=== PATIENT | male | born 1985 | race African-American/Black ===

== ENCOUNTER 2016-11-14 21:12 | Emergency (ER) | payer OTHER ==
[2016-11-14] MEDS ORDERED: PHENOL THROAT SPRAY 177 ML MM STA (21:43)
[2016-11-14] MEDS ORDERED: PHENOL THROAT SPRAY 177 ML MM ONE (21:50)
== END 2016-11-14 21:55 | disposition home or self-care (01) ==
DX: J02.8 Acute pharyngitis due to other specified organisms (principal); B97.89 Other viral agents as the cause of diseases classified elsewhere
CPT/HCPCS: 87070; 87077; 87181; 87430; 99283; A9270

== ENCOUNTER 2019-05-30 08:54 | Outpatient (CLI) | payer OTHER | END 2019-05-30 08:55 | disposition critical access hospital (66) | LOC: EMS 08:54 | PROVIDERS: ATTEND Surgery | DX: R55 Syncope and collapse (principal) | CPT/HCPCS: A0425; A0427 ==

== ENCOUNTER 2019-05-30 09:19 | Emergency (ER) | payer OTHER ==
[2019-05-30 09:25] VITALS: BP 120/79
--- NOTE | 2019-05-30 09:36 | ED Physician Documentation ---
History of Present Illness - Stated complaint Stated Complaint: SYNCOPE - Chief complaint Chief Complaint: Neuro - History obtained from History obtained from: Patient - History of Present Illness Timing: Prior to arrival - Additonal information Additional information: Patient is a previously healthy 33-year-old male presenting with syncopal episode that lasted several seconds and occurred just prior to arrival. Patient reports that he was in an argument with his and started to feel lightheaded. Patient believes he was experiencing extreme stress and anxiety. Patient was able to sit down and therefore did not fall or injure himself. Patient believes he blacked out for several seconds. Patient denies any other prodromal symptoms or any complaints at this time including headache, vision loss, chest pain, difficulty breathing, fever, cough, abdominal pain, urinary changes, stool changes or otherwise. No other improving or worsening factors n oted. Review of Systems Constitutional: denies: Fever Eyes: denies: Loss of vision Cardiac: denies: Chest pain / pressure Respiratory: denies: Dyspnea, Cough GI: denies: Abdominal Pain, Nausea, Vomiting, Diarrhea : denies: Dysuria Neurologic: reports: LOC. denies: Headache, Head injury PD PAST MEDICAL HISTORY - Past Medical History Past Medical History: No - Past Surgical History Past Surgical History: No - Present Medications Home Medications: Ambulatory Orders Medication Instructions Recorded Confirmed No Known Home Medications 11/14/16 11/14/16 - Allergies Allergies/Adverse Reactions: Allergies Allergy/AdvReac Type Severity Reaction Status Date / Time No Known Drug Allergies Allergy Verified 11/14/16 21:17 - Social History Does the pt smoke?: No Smoking Status: Never smoker Does the pt drink ETOH?: No Does the pt have substance abuse?: No - Immunizations Immunizations are current?: Yes - POLST Patient has POLST: No PD ED PE NORMAL - Vitals Vital signs reviewed: Yes - General General: Alert and oriented X 3, No acute distress, Well developed/nourished - HEENT HEENT: Atraumatic, PERRL, EOMI, Moist mucous membranes, Pharynx benign - Neck Neck: Supple, no meningeal sign - Cardiac Cardiac: RRR, No murmur - Respiratory Respiratory: No respiratory distress, Clear bilaterally - Abdomen Abdomen: Soft, Non tender, Non distended - Derm Derm: Normal color, Warm and dry, No rash - Extremities Extremities: No deformity, No tenderness to palpate - Neuro Neuro: Alert and oriented X 3, No motor deficit, No sensory deficit - Psych Psych: Normal mood, Normal affect Results - Vitals Vitals: Vital Signs - 24 hr 05/30/19 09:21 Temperature 36.3 C L Heart Rate 75 Respiratory 18 Rate Blood Pressure 120/79 O2 Saturation 98 Oxygen O2 Source Room air - EKG (time done) 0952 Rate: Rate (enter#) (77) Rhythm: NSR Computer interpretation: Disagree with computer (Computer read as atrial fibrillation, however, able to visualize P waves) - Labs Labs: Laboratory Tests 05/30/19 05/30/19 05/30/19 09:55 09:58 09:58 WBC 9.6 RBC 5.37 Hgb 15.0 Hct 47.9 MCV 89.2 MCH 27.9 MCHC 31.3 L RDW 13.3 Plt Count 190 MPV 11.1 Neut # (Auto) 6.6 Lymph # (Auto) 2.2 [place] # (Auto) 0.6 Eos # (Auto) 0.2 Baso # (Auto) 0.0 Absolute Nucleated RBC 0.00 Nucleated RBC % 0.0 Sodium 141 Potassium 4.0 Chloride 102 Carbon Dioxide 24 Anion Gap 15.0 H BUN 18 Creatinine 1.2 Estimated GFR (MDRD) 84 L Glucose 108 H Calcium 9.2 Total Bilirubin 0.6 AST 20 ALT 28 Alkaline Phosphatase 62 Troponin I High Sens 2.8 Total Protein 7.8 Albumin 4.3 Globulin 3.5 Albumin/Globulin Ratio 1.2 Lipase 28 PD MEDICAL DECISION MAKING - ED course Complexity details: reviewed results, re-evaluated patient, considered differential, d/w patient ED course: Patient presenting after likely vasovagal syncopal episode in which he did not injure himself or suffer any trauma. Patient is asymptomatic at this time. Physical exam is extremely benign. Do not find evidence of trauma, systemic illness, or neurological deficit. Screening lab work including cardiac enzymes and EKG returned unremarkable. Do not feel patient requires further invasive testing or imaging at this time. Feel that he is safe to discharge home. Discussed results and recommendations including supportive cares, return precautions, and appropriate follow-up. Patient voiced understanding and is co mfortable with discharge plan. Departure - Departure Disposition: 01 Home, Self Care Clinical Impression: Syncope Qualifiers: Syncope type: vasovagal syncope Qualified Code(s): R55 - Syncope and collapse Condition: Good Instructions: ED Syncope Vasovagal Follow-Up: your,doctor [Other] - Within 3 Days Comments: Recommend hydration, healthy diet, rest, and follow-up with your primary care physician in next 2 to 3 days. Return to ED sooner if experience worsening symptoms or have other concerns.
[2019-05-30 10:07] LABS: BASOPHILS % (AUTO) 0.2 %; EOSINOPHILS # (AUTO) 0.2 10^3/uL (0.0-0.7); EOSINOPHILS % (AUTO) 2.1 %; LYMPHOCYTES # (AUTO) 2.2 10^3/uL (1.5-3.5); LYMPHOCYTES % (AUTO) 22.5 %; MEAN CORPUSCULAR HEMOGLOBIN 27.9 pg (27.0-31.0); MEAN CORPUSCULAR HGB CONC 31.3 g/dL (32.0-36.0); MEAN CORPUSCULAR VOLUME 89.2 fL (80.0-94.0); MEAN PLATELET VOLUME 11.1 fL (7.4-11.4); MONOCYTES # (AUTO) 0.6 10^3/uL (0.0-1.0); MONOCYTES % (AUTO) 6.3 %; NEUTROPHILS # (AUTO) 6.6 10^3/uL (1.5-6.6); NEUTROPHILS % (AUTO) 68.7 %; PLT - PLATELET COUNT 190 10^3/uL (130-450); RED BLOOD COUNT 5.37 10^6/uL (4.70-6.10); RED CELL DISTRIBUTION WIDTH 13.3 % (12.0-15.0); WHITE BLOOD COUNT 9.6 x10^3/uL (4.8-10.8)
[2019-05-30 10:21] LABS: ALBUMIN 4.3 g/dL (3.2-5.5); ALBUMIN/GLOBULIN RATIO 1.2 (1.0-2.2); BILIRUBIN,TOTAL 0.6 mg/dL (0.2-1.0); CALCIUM 9.2 mg/dL (8.5-10.3); CREATININE 1.2 mg/dL (0.6-1.2); TOTAL PROTEIN 7.8 g/dL (6.7-8.2)
== END 2019-05-30 11:20 | disposition home or self-care (01) ==
LOC: EDUNIT# → ED 09:19
DX: R55 Syncope and collapse (principal)
CPT/HCPCS: 36415; 80053; 83690; 84484; 85025; 93005; 99283

== ENCOUNTER 2019-09-28 10:08 | Emergency (ER) | payer OTHER ==
--- NOTE | 2019-09-28 11:41 | ED Physician Documentation ---
PD HPI NVD - Stated complaint Stated Complaint: DIARRHEA - Chief complaint Chief Complaint: Abd Pain - History obtained from History obtained from: Patient - History of Present Illness Timing - onset: How many days ago (7-8) Timing - duration: Days (7-8) Timing - details: Abrupt onset, Still present Associated symptoms: Abdominal pain (intermittent cramping), Loss of appetite. No: Fever, Weight loss Contributing factors: Sick contact (he and his daughter both with diarrhea and some vomiting for a day and she improved, but patient has continued with diarrhea 3-4 times daily for the week. Onset after eating some leftover egg dish, but others ate some too without illness.) Review of Systems Constitutional: reports: Myalgias. denies: Fever, Chills Nose: denies: Rhinorrhea / runny nose, Congestion Throat: denies: Sore throat Respiratory: denies: Cough GI: reports: Abdominal Pain (cramping before diarrheal movements.), Nausea, Vomiting (the first day), Diarrhea. denies: Hematemesis, Bloody / black stool Neurologic: reports: Generalized weakness. denies: Near syncope, Altered mental status, Headache PD PAST MEDICAL HISTORY - Past Medical History Past Medical History: No Endocrine/Autoimmune: None GI: None - Past Surgical History Past Surgical History: No - Present Medications Home Medications: Ambulatory Orders Medication Instructions Recorded Confirmed Dicyclomine [Bentyl] 10 mg PO Q6H PRN #10 capsule 09/28/19 Diphenoxylate/Atropine [Lomotil] 1 each PO QID PRN #12 tablet 09/28/19 - Allergies Allergies/Adverse Reactions: Allergies Allergy/AdvReac Type Severity Reaction Status Date / Time No Known Drug Allergies Allergy Verified 11/14/16 21:17 - Social History Does the pt smoke?: No Smoking Status: Never smoker Does the pt drink ETOH?: No Does the pt have substance abuse?: No - Immunizations Immunizations are current?: Yes - POLST Patient has POLST: No PD ED PE NORMAL - Vitals Vital signs reviewed: Yes - General General: Alert and oriented X 3, No acute distress, Well developed/nourished - HEENT HEENT: Moist mucous membranes, Pharynx benign - Neck Neck: Supple, no meningeal sign, No adenopathy - Cardiac Cardiac: RRR, No murmur - Respiratory Respiratory: Clear bilaterally - Abdomen Abdomen: Normal bowel sounds, Soft, Non tender, Non distended, No organomegaly - Derm Derm: Normal color, Warm and dry Results - Vitals Vitals: Vital Signs - 24 hr 09/28/19 09/28/19 10:11 13:40 Temperature 36.9 C Heart Rate 89 71 Respiratory 16 18 Rate Blood Pressure 127/85 H 122/65 O2 Saturation 99 99 Oxygen O2 Source Room air - Labs Labs: Microbiology 09/28/19 12:20 Campylobacter Antigen Assay - Final Stool Laboratory Tests 09/28/19 12:20 Stl C. diff Tox B Gene NEGATIVE PD MEDICAL DECISION MAKING - ED course Complexity details: considered differential (can get stool studies to see if bacterial. Treat with symptoms meds meanwhile. ), d/w patient Departure - Departure Disposition: 01 Home, Self Care Clinical Impression: Acute diarrhea Condition: Stable Record reviewed to determine appropriate education?: Yes Instructions: ED Diet Vomiting Diarrhea Follow-Up: [facility] [place] [Provider Group] Prescriptions: Dicyclomine [Bentyl] 10 mg PO Q6H PRN #10 capsule PRN Reason: Abdominal Pain Diphenoxylate/Atropine [Lomotil] 1 each PO QID PRN #12 tablet PRN Reason: Diarrhea Comments: Stay well-hydrated. Simple foods such as carbohydrates and starches. Use some probiotics 2-3 times a day for the next several days. Lomotil if needed for diarrhea. Add dicyclomine for cramping. You can use some Tylenol or ibuprofen as well for pains or cramps. Stay well-hydrated and home off work today. The stool studies will result in a day and will tell us if there is any bacterial infection and need specific treating and will call you with the results. Recheck if not improved over the next couple of days. Forms: Activity restrictions Discharge Date/Time: 09/28/19 13:40
[2019-09-28] MEDS ORDERED: DIPHENOX/ATROPINE 2.5/0.025 MG TABLET PO STA (12:40)
[2019-09-28] MEDS ORDERED: DEXAMETHASONE 10 MG/ML VIAL IVP STA (12:40)
[2019-09-28] MEDS ORDERED: DICYCLOMINE 10 MG CAPSULE PO STA (12:41)
[2019-09-28] MEDS ORDERED: DEXAMETHASONE 10 MG/ML VIAL PO STA (12:53)
[2019-09-28] MEDS ORDERED: CHERRY SYRUP 10 ML UDC PO ONE ×2 (12:53)
[2019-09-28 13:40] VITALS: BP 122/65
== END 2019-09-28 13:40 | disposition home or self-care (01) ==
LOC: ED 10:08
DX: R19.7 Diarrhea, unspecified (principal)
CPT/HCPCS: 87045; 87046; 87493; 99283; A9270